=== PATIENT | male | born 1965 | race Caucasian/White ===

== ENCOUNTER 2017-04-11 07:43 | Day surgery (SDC) | payer OTHER ==
[2017-04-11] MEDS ORDERED: Lactated Ringers 1,000 ML IV SCH (07:45)
[2017-04-11] MEDS ORDERED: Propofol 200 MG/20 ML SDV IV ONE (09:20)
--- NOTE | 2017-04-11 09:49 | PCM.OPNOTE ---
- General Post-Op/Procedure Note Date of Surgery/Procedure: 04/11/17 Operative Procedure(s): c scope with bx Findings: proctitis Pre Op Diagnosis: c scope with bx Post-Op Diagnosis: proctitis Anesthesia Technique: VIANCA Primary Surgeon: Deon Godinez Anesthesia Provider: Dereck Moreno Pathology: rectum Complications: None Condition: Good Free Text/Narrative:: see dictation
[2017-04-11 10:13] VITALS: BP 131/97
--- NOTE | 2017-04-11 10:36 | OR ---
DATE OF OPERATION: 04/11/2017 SURGEON: Deon Godinez MD PROCEDURE PERFORMED: Colonoscopy with cold forceps biopsy. PREOPERATIVE DIAGNOSIS: Personal history of colon polyp. POSTOPERATIVE DIAGNOSIS: Questionable proctitis of the rectum. INDICATIONS FOR PROCEDURE: This is a 51-year-old white male who three years ago underwent a colonoscopy, had several polyp removed. I recommended a followup colonoscopy at this time. DESCRIPTION OF OPERATION: After an excellent IV sedation was administered, digital rectal exam was performed. The patient was noted to have a slight stricture but not markedly so. The flexible colonoscope was inserted and advanced to the cecum without difficulty. The prep was excellent. The following findings were noted. Ascending colon, unremarkable. Transverse colon, unremarkable. Descending colon, unremarkable. Sigmoid, unremarkable. Rectum at approximately 5 cm in area which appeared to be consistent with proctitis. Biopsies were taken. Colon was deflated, scope was removed. The patient tolerated the procedure well and was taken to recovery in good condition. /[id number] JERED/DAJUAN
== END 2017-04-11 10:50 | disposition home or self-care (01) ==
LOC: FB.SDS 07:43
PROVIDERS: ATTEND Surgery
PROC: 0DBP8ZX Excision of Rectum, Via Natural or Artificial Opening Endoscopic, Diagnostic (ICD-10-PCS; principal; 2017-04-11)
DX: Z09 Encounter for follow-up examination after completed treatment for conditions other than malignant neoplasm (principal); M51.16 Intervertebral disc disorders with radiculopathy, lumbar region; J45.909 Unspecified asthma, uncomplicated; K21.9 Gastro-esophageal reflux disease without esophagitis; I10 Essential (primary) hypertension; G47.33 Obstructive sleep apnea (adult) (pediatric)
CPT/HCPCS: 45380; 88305; J2704; J7120

== ENCOUNTER 2025-05-31 07:28 | Day surgery (SDC) | payer OTHER ==
[2025-05-31] MEDS ORDERED: Propofol 200 MG/20 ML SDV IV ONE (07:29)
[2025-05-31] MEDS ORDERED: Midazolam 1 MG/ML 2 ML SDV IV ONE (07:29)
[2025-05-31] MEDS ORDERED: fentaNYL 100 MCG/2 ML SDV IV ONE (07:29)
[2025-05-31] MEDS ORDERED: Sodium Chloride 0.9% 10 ML Syringe FLUSH PRN (07:30)
[2025-05-31 08:11] VITALS: BP 140/82; PULSE 75
[2025-05-31] MEDS: Lactated Ringers 1,000 ML IV SCH (08:23)
== END 2025-05-31 10:35 | disposition home or self-care (01) ==
LOC: FB.SDS 07:28
PROVIDERS: ATTEND Surgery
DX: Z12.11 Encounter for screening for malignant neoplasm of colon (principal); K62.1 Rectal polyp; I10 Essential (primary) hypertension; E78.5 Hyperlipidemia, unspecified; G47.30 Sleep apnea, unspecified; K21.9 Gastro-esophageal reflux disease without esophagitis; J45.909 Unspecified asthma, uncomplicated; Z86.0101 Personal history of adenomatous and serrated colon polyps; Z79.84 Long term (current) use of oral hypoglycemic drugs; Z79.899 Other long term (current) drug therapy
CPT/HCPCS: 00811; 45385; 88305; A9270; J2250; J2704; J3010; J7120